=== PATIENT | female | born 1985 ===

== ENCOUNTER 2017-07-18 10:00 | Outpatient (CLI) | payer OTHER ==
--- NOTE | 2017-07-18 18:36 | XRay Report ---
FINAL REPORT EXAM: XR SPINE CERVICAL 6+V HISTORY: NECK PAIN TECHNIQUE: Cervical spine 4 views with flexion extension lateral views PRIORS: None. FINDINGS: Vertebral bodies demonstrate normal height and alignment. The disk spaces are within normal limits. The facet joints demonstrate normal alignment. The spinous processes are intact. Craniocervical junction is unremarkable. C1 and C2 are intact. IMPRESSION: Negative cervical spine series.
== END 2017-07-18 10:01 | disposition home or self-care (01) ==
LOC: SPVIMAG 10:00
PROVIDERS: ATTEND Physical Medicine & Rehabilitation
DX: M54.2 Cervicalgia (principal)
CPT/HCPCS: 72050; 72052